=== PATIENT | male | born 1985 | race Caucasian/White ===

== ENCOUNTER 2024-08-03 14:54 | Emergency (ER) | payer OTHER, SELFPAY ==
[2024-08-03 15:39] VITALS: BP 152/104; PULSE 93; RESP 18; TEMP 36.7; O2SAT 98; BMI 20.2
--- NOTE | 2024-08-03 15:40 | ED_ITS ---
HPI - General Adult General Chief complaint: Ear Problems Stated complaint: L ear swelling Related Data Allergies Allergy/AdvReac Type Severity Reaction Status Date / Time amoxicillin Allergy Unknown Unknown Verified 08/03/24 15:40 Penicillins Allergy Unknown Unknown Verified 08/03/24 15:40 [facility] Social History Social History Advance Directives: No Advance Directives Information Provided: No Do you have a plan to hurt others: No Plan Physical Exam ED Vital Signs: BMI result Body Mass Index 20.2 Course Course Course Narrative: This is a rapid medical exam performed by Xiomy Norton NP: Additional HPI, ROS, PE not included below will be deferred to primary provider. Patient is a 39-year-old male presenting with complaint of left auricular swelling for the past week. Denies any known injury, states swelling was present when he woke. Area is fluctuant, likely needs drainage. Discharge Plan Discharge Clinical Impression: Ear swelling Patient Disposition: Left W/O Completing Treatment Discharge Date/Time: 08/03/24 19:51
--- NOTE | 2024-08-03 19:41 | PC.NURSE ---
no answer when called from [facility] @194
== END 2024-08-03 19:51 | disposition left against medical advice (07) ==
LOC: HO.ED 19:50
PROVIDERS: Emergency Provider Emergency Medicine; PCP Internal Medicine
DX: H92.02 Otalgia, left ear (principal)
CPT/HCPCS: 99281